=== PATIENT | male | born 1950 | race Caucasian/White ===

== ENCOUNTER → 2018-03-17 | Outpatient (CLI) | payer OTHER | LOC: FIMAGING 11:00 | PROVIDERS: ATTEND Specialist | DX: C61 Malignant neoplasm of prostate (principal); R93.7 Abnormal findings on diagnostic imaging of other parts of musculoskeletal system | CPT/HCPCS: 78306; A9503 ==

== ENCOUNTER 2018-05-04 05:42 | Inpatient (IN) | payer OTHER ==
--- NOTE | 2018-05-03 18:11 | GHP ---
[f rep st] PREOP HISTORY AND PHYSICAL ADMISSION DIAGNOSIS: Adenocarcinoma of the prostate. HISTORY OF PRESENT ILLNESS: This is a gentleman who presented with an elevated PSA of 8 and had a bi opsy of the prostate that revealed a Alyssia score 7 cancer. His prostate volume was 75 g. He had a n MRI of the prostate that confirmed what appeared to be localized prostate cancer with some degenera tive joint disease. He is a Alyssia 4+3; eight cores positive World Health Organization group 3 with greater than 50% of the cores positive. He is admitted for bilateral pelvic lymphadenectomy and rad ical retropubic prostatectomy robotically. PAST MEDICAL HISTORY: BPH with obstruction, elevated PSA. He denies any previous surgical treatment s. MEDICATIONS: Include ibuprofen. He has had a bowel prep preoperatively. ALLERGIES: None. FAMILY HISTORY: Noncontributory. SOCIAL HISTORY: He has moderate alcohol consumption. Light tobacco use. He is and retired. REVIEW OF SYSTEMS: Negative cardiac, respiratory, GI, and endocrine. PHYSICAL EXAMINATION: VITAL SIGNS: Stable. CHEST: Clear. HEART: Regular rate and rhythm. ABDOM EN: Normal. No organomegaly, rebound or guarding. LOWER EXTREMITIES: Normal. At the present time , he is admitted for the above procedure. Indications, complications, risks as well as options have been discussed. Written and verbal consents have been obtained, and he is admitted for the above procedure. /[id number]/MODL
[2018-05-04] MEDS ORDERED: LR 1,000 ML IV ONE (06:05)
[2018-05-04] MEDS ORDERED: BUPIVACAINE 0.5% 30 ML SDV ONE (06:56)
--- NOTE | 2018-05-04 07:00 | PDHPUP ---
History & Physical Update H&P update statement: This history and physical update is based on an assessment of the patient which was completed after admission or registration (within 24 hours), but prior to the surgery/procedure. H&P update: H&P reviewed & patient examined, no change in patient's condition since H&P completed
--- NOTE | 2018-05-04 07:04 | PDANEPAE ---
ANE History of Present Illness 67 year old with prostate ca ANE Past Medical History - Cardiovascular History Hx Hypertension: Yes Hx Arrhythmias: No Hx Chest Pain: No Hx Coronary Artery / Peripheral Vascular Disease: No Hx CHF / Valvular Disease: No Hx Palpitations: No - Pulmonary History Hx COPD: No Hx Asthma/Reactive Airway Disease: No Hx Recent Upper Respiratory Infection: No Hx Oxygen in Use at Home: No Hx Sleep Apnea: No Sleep Apnea Screening Result - Last Documented: Negative - Neurologic History Hx Cerebrovascular Accident: No Hx Seizures: No Hx Dementia: No - Endocrine History Hx Diabetes: No - Renal History Hx Renal Disorders: No - Liver History Hx Hepatic Disorders: No - Neurological & Psychiatric Hx Hx Neurological and Psychiatric Disorders: No - Cancer History Hx Cancer: No Cancer History Comment: SKIN CA REMOVED X2 - Congenital Disorder History Hx Congenital Disorders: No - GI History Hx Gastrointestinal Disorders: No - Other Health History Other Health History: NEG - Chronic Pain History Chronic Pain: Yes (KNEES) - Surgical History Prior Surgeries: NONE ANE Review of Systems Review of systems is: negative Review of Systems: - Exercise capacity METS (RN): 5 METS ANE Patient History - Allergies Allergies/Adverse Reactions: No Known Allergies Allergy (Unverified 04/27/18 14:53) - Home Medications Home medications: home medication list seen and reviewed Home Medications: Cholecalciferol Vit D3 [Vitamin D3 (*)] 50,000 unit PO TH 04/27/18 [Last Taken Unknown] Losartan Potassium [Cozaar 50 mg (*)] 50 mg PO HS 04/27/18 [Last Taken Unknown] - NPO status NPO Status: no food or drink >8 hours NPO Since - Liquids (Date): 05/04/18 NPO Since - Liquids (Time): 03:30 NPO Since - Solids (Date): 05/02/18 NPO Since - Solids (Time): 19:00 - Smoking Hx Smoking Status: Current some day smoker - Alcohol Use Alcohol Use: Other (2-3 drinks per drinks) - Family Anes Hx Family Anes Hx: none Family Hx Anesthesia Complications: NEG ANE Labs/Vital Signs - Vital Signs Blood Pressure: 135/89 Heart Rate: 66 Respiratory Rate: 14 O2 Sat (%): 94 Height: 180.34 cm Weight: 97.522 kg ANE Physical Exam - Airway Neck exam: FROM Mallampati Score: Class 1 Mouth exam: normal dental/mouth exam - Pulmonary Pulmonary: no respiratory distress, clear to auscultation - Cardiovascular Cardiovascular: regular rate and rhythym - ASA Status ASA Status: II ANE Anesthesia Plan Anesthesia Plan: general endotracheal anesthesia
[2018-05-04] MEDS ORDERED: ceFAZolin 2 GM/DEXTROSE 100 ML IV ONE (07:15)
[2018-05-04] MEDS ORDERED: fentaNYL 250 MCG/5 ML INJ ONE (07:20)
[2018-05-04] MEDS ORDERED: PROPOFOL 200 MG/20 ML VIAL ONE ×2 (07:20→09:06)
[2018-05-04] MEDS ORDERED: ROCURONIUM 50 MG/5 ML VIAL ONE (07:21)
[2018-05-04] MEDS ORDERED: fentaNYL 100 MCG/2 ML INJ ONE ×2 (08:26→10:27)
[2018-05-04] MEDS ORDERED: THROMBIN(HUM PLAS)/FIBRINOG/CA 5 ML VIAL TP ONE (08:44)
[2018-05-04] MEDS ORDERED: PROMETHAZINE HCL 25 MG/ML INJ IVP PRN (10:19)
[2018-05-04] MEDS ORDERED: fentaNYL 100 MCG/2 ML INJ IVP PRN (10:19)
[2018-05-04] MEDS ORDERED: ONDANSETRON 4 MG/2 ML VIAL IVP PRN ×2 (10:19→10:46)
[2018-05-04] MEDS ORDERED: NALOXONE HCL 0.4 MG/ML INJ IVP PRN ×2 (10:19→10:46)
[2018-05-04] MEDS ORDERED: HYDROmorphONE/DILAUDID 1 MG/ML INJ IVP PRN (10:19)
[2018-05-04] MEDS ORDERED: SUGAMMADEX SODIUM 200 MG/2 ML VIAL IVP ONE (10:23)
[2018-05-04] MEDS ORDERED: DEXAMETHASONE 4 MG/ML VIAL ONE (10:27)
[2018-05-04] MEDS ORDERED: ONDANSETRON 4 MG/2 ML VIAL ONE (10:27)
--- NOTE | 2018-05-04 10:44 | POSTOPPROG ---
Post Op Note Date of Operation: 05/04/18 Surgeon: Isaak Flores Soa Integration Developer: Liudmila Anesthesiologist: Warm Anesthesia: GET(General Endotracheal) Pre-op Diagnosis: prostate cancer Procedure: RA-RRP and PLND Inf/Abcess present in the surg proc area at time of surgery?: No EBL: 50-100 Complications: none Drains: Amrit Gonzalez Specimen(s): prostate, lymph nodes--dictated
[2018-05-04] MEDS ORDERED: ONDANSETRON DISINTEGRATING 4 MG TAB PO PRN (10:46)
[2018-05-04] MEDS ORDERED: ZOLPIDEM TARTRATE 5 MG TAB PO PRN (10:46)
[2018-05-04] MEDS ORDERED: ACETAMINOPHEN 325 MG TAB PO PRN (10:46)
[2018-05-04] MEDS ORDERED: HYDROmorphONE/DILAUDID 6 MG/30 ML PCA IV PRN (10:46)
--- NOTE | 2018-05-04 11:20 | POSTANESTH ---
Post Anesthetic Evaluation Cardiovascular Status: Normal, Stable Respiratory Status: Normal, Stable Level of Consciousness/Mental Status: Can Participate in Eval Pain Control: Adequate, Prn Tx Ordered Nausea/Vomiting Control: Adequate, Prn Tx Ordered Complications Possibly Related to Anesthesia: None Noted
--- NOTE | 2018-05-04 11:25 | GOP ---
[f rep st] OPERATIVE REPORT DATE OF OPERATION: 05/04/2018 SURGEON: Isaak Flores MD HEAD BELLHOP CAPTAIN: Sheila Nur CFA. ANESTHESIA: General. ANESTHESIOLOGIST: Justin Tran MD. PREOPERATIVE DIAGNOSIS: Adenocarcinoma of the prostate. POSTOPERATIVE DIAGNOSIS: Adenocarcinoma of the prostate. PROCEDURE PERFORMED: Robotic-assisted radical prostatectomy and pelvic lymph node dissection. FINDINGS: ESTIMATED BLOOD LOSS: per Anesthesia was 100 mL. INDICATIONS: Prostate cancer discussed in H and P. Written verbal consent was obtained. I tried to answer all of his questions and his 's questions preoperatively and written verbal consent was o btained. DESCRIPTION OF PROCEDURE: After undergoing general anesthesia and being appropriately prepped and dr aped sterilely in the robot position and all sites padded and the appropriate time-out. He had a Fol ey catheter passed in the bladder and at that point, a Veress needle was placed in the supraumbilical site and intraabdominal pressure was inflated to 15 mmHg pressure with CO2 and camera port 12 mm was placed under direct vision and then 3, 8 mm robot arm ports, and an clinical education assistant 12 mm port were placed strategically. At that point, the robot was docked and I began the procedure by taking down the sig moid colon which had adhesions. Then, I was able to bring the colon out of the pelvis to identify th e Vasa as it went into the retroperitoneal space near the prostate, dissected those down and mobilize d the rectum off the posterior prostate and entered Denonvilliers' space. At that point, dissected a mpulla of the vas deferens at the right. The ampulla was quite free, the left seemed to be fixed, so I tried to go quite lateral to that, so as not to leave any inflammatory tissue or potential maligna ncy behind and then Hem-O-baylee's were used for hemostasis. At that point dropped the bladder down in a normal fashion. The obliterated umbilical arteries and urachus were taken down. Hemostasis provid ed with electrocautery. The endopelvic fascia was incised on the right and left sides of the prostat e. Deep dorsal vein was ligated with two #0 Vicryl sutures with an M stitch technique and then at th at point, focused at the bladder neck and that was taken down with electrocautery and sharply. I cou ld delineate the plane between the bladder neck and the base of the prostate quite well and made sure not to buttonhole the bladder on the lateral sides and at that point, I brought the ampulla vas defe rens anterior to the bladder neck and then with the vessel tissue sealer device dissected out on the left side to provide hemostasis and try to get clear of the margins of what appeared to be relatively large cancer on the left side. Then at that point on the right side stayed adjacent to the prostate and down to the apex, and the apex was clear. He had apical biopsy that was positive on the right, but clinically it appeared that there was no malignancy remaining. Then at that point the apex of th e prostate was transected and the urethra was transected, and then inspected the pelvis. There was n o bleeding identified of significance. No rectal injury identified and then a Arben stitch with a 3- 0 V-lock was used to bring the bladder back down to the pelvis. Then the anastomosis was completed w ith a 4-0 running Vicryl stitch. It was tested and noted to be water tight with an 18 Sanchez catheter , balloon inflated, and then the pelvic lymph nodes were taken down using the mid aspect of the exter nal iliac vein to its bifurcation. The depth of the dissection was carried down to the obturator ner ve on both the right and left sides. Hemostasis provided with Hem-O-Locks. Then the specimens were removed. The prostate was placed in a bag and the KELLEY drain was brought out through the left lateral robot 8 mm port. Fascial suture device was used to close the clinical education assistant port and then extended the inc ision for the camera port to bring the prostate out and then hemostasis noted at all the port sites. Then, the linea alba and rectus was approximated with a running 0 Vicryl and 4-0 Monocryl was used t o close the skin edges. Estimated blood loss 100 mL. Lymph nodes, there was no obvious large dallin disease on inspection during the operative procedure and grossly the prostate appeared to have no res idual or no tumor extending beyond the dissection margins, but the left was firm and large. Catheter irrigated well. He will be admitted postoperatively. No complications. Specimens identified. I w ill discuss the findings with his family. Copy requested to: Romero Steele MD /[id number]/MODL
[2018-05-04] MEDS ORDERED: CHOLECALCIFEROL VIT D3 50,000 UNIT CAP PO SCH (11:30)
[2018-05-04] MEDS: HYDROCODONE/APAP 5/325 TAB PO PRN (12:56)
[2018-05-04] MEDS: D5W 1/2 NS W/ 20 KCl/L 1,000 ML IV SCH ×2 (12:57→21:34)
--- NOTE | 2018-05-04 15:02 | PDMN ---
Medical Necessity Medical necessity: Patient meets inpatient status per physician note and [facility] [place] Prostatectomy, Radical - 1 day postop - (robotic-assisted radical prostatectomy with PLND.)
[2018-05-04] MEDS: LOSARTAN POTASSIUM 50 MG TAB PO SCH (21:34)
[2018-05-05] MEDS: HYDROCODONE/APAP 5/325 TAB PO PRN ×3 (04:08→20:18)
[2018-05-05 05:00] LABS: PLATELET COUNT 229 10^3/uL (150-400)
[2018-05-05] MEDS: D5W 1/2 NS W/ 20 KCl/L 1,000 ML IV SCH ×2 (06:02→16:23)
--- NOTE | 2018-05-05 09:54 | SOAPPROG ---
SOAP Progress Note Assessment/Plan: Assessment: Prostate cancer Acute POD 1, cont care Plan: Plan DC in AM 05/05/18 09:52 Subjective: doing well Objective: Vital Signs Temp Pulse Resp BP Pulse Ox 36.8 C 62 18 112/63 97 05/05/18 08:21 05/05/18 08:21 05/05/18 08:21 05/05/18 08:21 05/05/18 08:21 Laboratory Results 05/05/18 04:11 05/05/18 04:11 05/04/18 05/05/18 05/06/18 05:59 05:59 05:59 Intake Total 710 1100 Output Total 1325 Balance -615 1100 Physical Exam - Physical Exam General Appearance: alert EENT: normal ENT inspection Neck: supple Respiratory: No respiratory distress Cardiac/Chest: regular rate, rhythm Abdomen: soft Male Genitalia: other (cath ok) Back: No CVA tenderness Extremities: non-tender, No calf tenderness, No swelling Neuro/Psych: oriented x 3 ICD10 Worksheet Patient Problems: Problems Problem Status Onset Prostate cancer Acute - ICD10 Problem Qualifiers (1) Prostate cancer
[2018-05-05] MEDS: LOSARTAN POTASSIUM 50 MG TAB PO SCH (20:19)
[2018-05-06] MEDS: D5W 1/2 NS W/ 20 KCl/L 1,000 ML IV SCH (00:27)
[2018-05-06] MEDS: HYDROCODONE/APAP 5/325 TAB PO PRN (04:18)
[2018-05-06 08:46] VITALS: BP 105/61
[2018-05-06] MEDS ORDERED: D5W 1/2 NS 1,000 ML IV SCH (09:00)
--- NOTE | 2018-05-06 11:22 | SOAPPROG ---
SONEELA Progress Note Assessment/Plan: Assessment: Prostate cancer Acute POD 2, plan DC Plan: Plan DC 05/06/18 12:09 Subjective: doing well, plan for dc home Objective: Vital Signs Temp Pulse Resp BP Pulse Ox 37 C 72 16 105/61 96 05/06/18 08:46 05/06/18 08:46 05/06/18 08:46 05/06/18 08:46 05/06/18 08:46 Laboratory Results 05/05/18 04:11 05/05/18 04:11 05/05/18 05/06/18 05/07/18 05:59 05:59 05:59 Intake Total 710 2825 505 Output Total 1322 5919 5044 Balance -391 340 -9776 Physical Exam - Physical Exam General Appearance: alert Neck: supple Respiratory: No respiratory distress Cardiac/Chest: regular rate, rhythm Abdomen: soft Male Genitalia: other (catheter ok) Back: No CVA tenderness Skin: warm/dry Extremities: No calf tenderness, No Dexter's sign Neuro/Psych: alert, oriented x 3 ICD10 Worksheet Patient Problems: Problems Problem Status Onset Prostate cancer Acute - ICD10 Problem Qualifiers (1) Prostate cancer
--- NOTE | 2018-05-06 12:12 | ASMTCMCOM ---
CM Note CM Note Notes: Plan is for pt to DC today with no needs. Date Signed: 05/06/2018 12:11 PM Electronically Signed By:Eleni Flores LCSW
--- NOTE | 2018-05-06 12:31 | GDS ---
[f rep st] DISCHARGE SUMMARY ADMISSION DIAGNOSIS: Adenocarcinoma of the prostate. DISCHARGE DIAGNOSIS: Adenocarcinoma of the prostate. PROCEDURES DURING HOSPITALIZATION: Robotic-assisted radical prostatectomy with bilateral pelvic lymp hadenectomy. CONSULTATIONS: None. HOSPITAL COURSE: Gentleman, who was an a.m. admission, had the above procedure performed. His Jacks on-Ognzalez drain was discontinued postop day 2. He is discharged home with normal diet, doing well. P ostoperative, discussed the potential risks and complications associated in the postoperative period, mainly being DVT and pulmonary emboli. Options of prevention are ambulation as well as anticoagulat ion. We have elected not to pursue the anticoagulation because of potential postop bleeding. If he has any suggestion of leg swelling, leg pain, shortness of breath or chest pain, he is aware that he needs to go to the emergency room urgently. I have tried to answer their questions to the best of my ability and he will be discharged home with a catheter in place. /[id number]/MODL
== END 2018-05-06 14:15 | disposition home or self-care (01) | DRG 708 ==
LOC: F1N 05:42
PROVIDERS: ADMIT Specialist; ATTEND Specialist
PROC: 0VT04ZZ Resection of Prostate, Percutaneous Endoscopic Approach (ICD-10-PCS; principal; 2018-05-04 07:15)
PROC: 07BC4ZX Excision of Pelvis Lymphatic, Percutaneous Endoscopic Approach, Diagnostic (ICD-10-PCS; principal; 2018-05-04 07:15)
DX: C61 Malignant neoplasm of prostate (principal)
CPT/HCPCS: J0690; J1100; J2405; J2704; J3010